=== PATIENT | female | born 1955 | race African-American/Black ===

== ENCOUNTER 2019-03-14 02:39 | Observation (INO) ==
[2019-03-14] MEDS ORDERED: ASPIRIN PO ONE (03:06)
[2019-03-14 03:36] LABS: BASO# 0.01 X1000 (0.0-0.2); BASO% 0.2 % (0.0-0.8); EOS# 0.08 X1000 (0.0-0.7); EOS% 1.3 % (0.0-10.0); HEMATOCRIT 35.2 % (37.0-47.0); HEMOGLOBIN 11.4 g/dL (12.0-16.0); LYMPH# 2.51 X1000 (1.2-3.4); LYMPH% 39.9 % (20.5-51.1); MCH 28.5 PG (27-31); MCHC 32.4 g/dL (33-37); MONO# 0.74 X1000 (0.11-0.59); MONO% 11.8 % (1.7-9.3); MPV 13.5 FL (7.4-10.4); NEUT# 2.95 X1000 (1.4-6.5); NEUT% 46.8 % (42.2-75.2); PLT 121 X1000 (130-400); RDW 13.7 % (11.5-14.5); WBC 6.29 X1000 (4.8-10.8)
--- NOTE | 2019-03-14 03:39 | PROVIDER DOCUMENTATION ---
HPI-Chest Pain - General Chief Complaint: Chest Pain Stated Complaint: CHEST PAIN/BACK PA IN Time Seen by Provider: 03/14/19 03:15 Source: patient Allergies/Adverse Reactions: Patient Allergies Allergy/AdvReac Type Severity Reaction Status Date / Time Sulfa (Sulfonamide Allergy ITCHING Verified 01/15/19 12:49 Antibiotics) Home Medications: Home Medication List Medication Instructions Recorded Confirmed Last Taken Type ATORVAstatin [Lipitor] 1 tab PO QHS 01/15/19 03/14/19 01/14/19 History Cartilage/Collagen/Bor/Hyalur 1 tab PO DAILY 01/15/19 03/14/19 01/14/19 History [Joint Health Tablet] Dicyclomine [Bentyl] 1 cap PO BID 01/15/19 03/14/19 01/14/19 History Krill Oil 1 cap PO DAILY 01/15/19 03/14/19 01/14/19 History Lisinopril/Hydrochlorothiazide 1 tab PO DAILY 01/15/19 03/14/19 01/14/19 History [Lisinopril-Hctz 10-12.5 mg Tab] Pantoprazole Sodium [Protonix] 40 mg PO DAILY #10 tablet. 01/15/19 03/14/19 Unknown Rx Cetirizine [Zyrtec] 10 mg PO DAILY 03/14/19 03/14/19 Unknown History Ginseng 1 dose PO DAILY 03/14/19 03/14/19 Unknown History Multivit-Min36/Iron/Folic Acid 1 tab PO DAILY 03/14/19 03/14/19 Unknown History [Geritol Complete Tablet] - History of Present Illness-CP Nature of Presenting Problem: sharp sternal CP, that radiates only to back, began ~1100 am yest. No SOB, no abd pain, no N/V, no diaphoresis. Has tried various meds for reflux without relief. Says nothing she does makes better nor worse. No hx of cardiac issues Location: reports: substernal Review of Systems - Adult - REVIEW OF SYSTEMS - ADULT Constitutional: reports: no symptoms reported Eyes: reports: no symptoms reported Ears, Nose, Mouth & Throat: reports: no symptoms reported Cardiovascular: reports: see HPI Respiratory: reports: no symptoms reported Gastrointestinal: reports: no symptoms reported Genitourinary: reports: no symptoms reported Musculoskeletal: reports: no symptoms reported Integumentary: reports: no symptoms reported Neurological: reports: no symptoms reported Psychiatric: reports: no symptoms reported Endocrine: reports: no symptoms reported Hematologic/Lymphatic: reports: no symptoms reported Allergic/Immunologic: reports: no symptoms reported Past History - Adult - PAST MEDICAL HISTORY-ADULT Review of Records: reports: Medications Reviewed Cardiovascular: reports: HTN, hyperlipidemia Respiratory: reports: denies history Gastrointestinal: reports: GERD Genitourinary: reports: denies history Musculoskeletal: reports: denies history Neurological: reports: denies history Psychiatric: reports: denies history Endocrine/Immune: reports: denies history Additional History: 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, grossly normal, no motor/sensory deficits - PSYCHIATRIC Psych/Mental Status: normal mood/affect, normal thought content, normal thought process, oriented x 3 - HEART Score HEART Score: History: Moderately Suspicious HEART Score: ECG: Non-Specific Repolarization Disturbance/LBBB/PM HEART Score: Age: 45-65 Years HEART Score: Risk Factors for Atherosclerotic Disease: 1 or 2 Risk Factors HEART Score: Troponin: < or = Normal Limit Total HEART Score:: 4 Progress - PLAN OF CARE/RESULTS Progress/Plan/Lab Results: Vital Signs - 8 hr 03/14/19 02:40 03/14/19 04:32 03/14/19 04:34 Temperature 98.2 F Pulse Rate 69 67 Respiratory Rate 20 18 Blood Pressure 116/73 107/68 O2 Sat by Pulse Oximetry 95 03/14/19 05:30 03/14/19 05:32 03/14/19 05:45 Temperature Pulse Rate 83 81 77 Respiratory Rate 18 16 14 Blood Pressure 137/65 O2 Sat by Pulse Oximetry 99 98 97 03/14/19 06:00 03/14/19 06:02 03/14/19 06:30 Temperature Pulse Rate 74 75 73 Respiratory Rate 13 14 14 Blood Pressure 114/61 O2 Sat by Pulse Oximetry 98 98 97 03/14/19 06:32 03/14/19 06:45 03/14/19 07:00 Temperature Pulse Rate 69 73 71 Respiratory Rate 12 14 15 Blood Pressure 102/65 O2 Sat by Pulse Oximetry 97 97 98 03/14/19 07:02 03/14/19 07:15 03/14/19 07:30 Temperature Pulse Rate 66 68 69 Respiratory Rate 13 13 14 Blood Pressure 112/62 O2 Sat by Pulse Oximetry 98 98 98 03/14/19 07:32 03/14/19 07:36 03/14/19 07:45 Temperature Pulse Rate 66 64 68 Respiratory Rate 14 12 15 Blood Pressure 118/64 108/67 O2 Sat by Pulse Oximetry 99 99 99 03/14/19 08:01 Temperature 98.2 F Pulse Rate 75 Respiratory Rate 18 Blood Pressure 115/67 O2 Sat by Pulse Oximetry 98 Laboratory Results - last 24 hr 03/14/19 03/14/19 03/14/19 03:00 03:00 03:00 WBC 6.29 RBC 4.00 L Hgb 11.4 L Hct 35.2 L MCV 88.0 MCH 28.5 MCHC 32.4 L RDW Std Deviation 13.7 Plt Count 121 L MPV 13.5 H Immature Gran % (Auto) 0.0 Neut % (Auto) 46.8 Lymph % (Auto) 39.9 [place] % (Auto) 11.8 H Eos % (Auto) 1.3 Baso % (Auto) 0.2 Immature Gran # (Auto) 0.00 Neut # (Auto) 2.95 Lymph # (Auto) 2.51 [place] # (Auto) 0.74 H Eos # (Auto) 0.08 Baso # (Auto) 0.01 PT INR PTT (Actin FS) D-Dimer, Quantitative Sodium 141 Potassium 3.9 Chloride 103 Carbon Dioxide 24 L Anion Gap 14 BUN 18 Creatinine 1.1 H Estimated GFR/1.73 m2 60 BUN/Creatinine Ratio 16 Glucose 122 H Calculated Osmolality 284 Calcium 9.9 Total Bilirubin 0.19 L AST 18 ALT 10 Alkaline Phosphatase 88 Creatine Kinase 206 H Creatine Kinase Index 0.8 CK-MB (CK-2) 1.61 Troponin T [id number]-Szivqiqyxfj Pept 20 Total Protein 7.7 Albumin 4.5 Globulin 3.2 Albumin/Globulin Ratio 1.4 03/14/19 03/14/19 03/14/19 03:00 03:00 03:00 WBC RBC Hgb Hct MCV MCH MCHC RDW Std Deviation Plt Count MPV Immature Gran % (Auto) Neut % (Auto) Lymph % (Auto) [place] % (Auto) Eos % (Auto) Baso % (Auto) Immature Gran # (Auto) Neut # (Auto) Lymph # (Auto) [place] # (Auto) Eos # (Auto) Baso # (Auto) PT 12.6 INR 0.93 PTT (Actin FS) 30.5 D-Dimer, Quantitative 0.99 H Sodium Potassium Chloride Carbon Dioxide Anion Gap BUN Creatinine Estimated GFR/1.73 m2 BUN/Creatinine Ratio Glucose Calculated Osmolality Calcium Total Bilirubin AST ALT Alkaline Phosphatase Creatine Kinase Creatine Kinase Index CK-MB (CK-2) Troponin T < 0.010 Uae-[id number]-Ukdpzxzuktn Pept Total Protein Albumin Globulin Albumin/Globulin Ratio Orders Category Date Time Status Cardiac Monitoring DIRECTED Care 03/14/19 03:06 Active Nursing- Obtain EKG once Care 03/14/19 08:22 Active Oxygen Therapy- ED Nursing DIRECTED Care 03/14/19 03:06 Active Saline Loc NOW Care 03/14/19 03:06 Active CHEST-2 VIEWS [RAD] Stat Exams 03/14/19 03:[address] ANGIOGRM PULMONARY ARTERIES [CT] Stat Exams 03/14/19 04:33 Completed CBC WITH ELECTRONIC DIFF [HEME] Stat Lab 03/14/19 03:00 Completed CK PROFILE [SP CHEM] Stat Lab 03/14/19 03:00 Completed COMPREHENSIVE METABOLIC PANEL [CHEM] Stat Lab 03/14/19 03:00 Completed D-DIMER [COAG] Stat Lab 03/14/19 03:00 Completed PRO B-NATRIURETIC PEPTIDE Stat Lab 03/14/19 03:00 Completed PROTIME WITH INR [COAG] Stat Lab 03/14/19 03:00 Completed PTT [COAG] Stat Lab 03/14/19 03:00 Completed TROPONIN T Stat Lab 03/14/19 03:00 Completed TROPONIN T Stat Lab 03/14/19 08:35 Ordered Aspirin Med 03/14/19 03:06 Discontinued 325 mg PO NOW ONE Nitroglycerin Med 03/14/19 08:23 Discontinued 0.5 inch TOP NOW ONE CP/SOB/Palp >45 yrs of Age Stat Oth 03/14/19 03:06 Ordered EKG [EKG] Stat Ther 03/14/19 03:06 Draft EKG [EKG] Stat Ther 03/14/19 08:22 Ordered Result Diagrams: 03/14/19 03:00 03/14/19 03:00 - REASSESSMENT Reassessment #1 Time Reassessed: 08:23 Status: improving (seen and examined by me. Has left sided CP radiating to back intermittent since yesterday. Never had this before. Case discussed with Dr. Turpin. CTA negative for PE. Left retroperitoneal mass present for many years, last checked 2 years ago.) - EKG 1 Time of EKG reading by physician:: 02:51 EKG Read and Signed by:: Torin Turpin EKG Interpretation (*Must complete 3 of following elements*): Normal Rate: 66 Rhythm: nsr QRS: normal ST Wave: normal 2 Time of EKG reading by physician:: 08:37 EKG Read and Signed by:: Thanh Shah EKG Interpretation (*Must complete 3 of following elements*): Normal Rate: 61 Rhythm: NSR [place]: normal QRS: normal VT Interval: normal ST Wave: normal - CT/MRI 1 CT Study: Angiogram Impression: Abnormal, See EMR Report ( Signed EXAM: CT ANGIOGRM PULMONARY ARTERIES 03/14/2019 HISTORY: R/O PE, dissection TECHNIQUE: This exam was performed using automated exposure control, adjustment of mA or kV according to patient size, and/or use of iterative reconstruction technique. COMMENT: There are no previous studies. 3-D MIPS were performed. There are no filling defects in the pulmonary arteries. There is no evidence of aneurysm or dissection in the thoracic aorta. There is a small hiatal hernia. There is some hyperdense material in the stomach which may be due to ingested medication. There is a lack of enhancement as well as marked atrophy in the left kidney. There are several cysts in the left kidney. There is a mass encasing the left renal artery which is threadlike. This mass also abuts the aorta and measures at least 3.1 x 1.9 cm in axial dimension and 3.1 cm in superior-inferior dimensio n. It appears to be separate from the adrenal gland. This may be a steve mass. Further evaluation of the abdomen may be desirable. There are platelike opacities in both lower lobes posteriorly. There are calcifications in nodes in the aorticopulmonary window and left hilum. There are spondylotic changes in the thoracic spine. There is no evidence of acute bony abnormality. IMPRESSION: Minimal bibasilar atelectasis. Retroperitoneal mass surrounding the left renal artery. 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 Electronically signed by Jagdish Goddard 03/14/2019 7:03 AM 03/14/19 0703 Interpreting Physician: Jagdish Goddard MD Dictated Date/Time: 03/14/19 0657 cc: Torin Turpin MD; None,PCP) - CONSULTS/PCP/HOSPITALIST Notification #1 *Consult/PCP/Hospitalist*: Hospitalist ASHOK paged at 0820 Time Discussed: 08:38 ([place]) Consult Disposition: Will see in ED, Admit - CHANGE OF SHIFT REPORT (ED Provider) 1 Report Given and Care Transferred to:: Pablo Time of Transfer: 06:39 Items Pending: CT/MRI Results Departure - Departure Date of Disposition Decision: 03/14/19 Time of Disposition Decision: 08:24 DIAGNOSIS: Chest pain of uncertain etiology Disposition: ADMITTED INPATIENT 09 Certified Medical Emergency: Emergent Condition: Stable Referrals and Follow-Ups: None,PCP [Primary Care Provider] - - Critical Care Note This patient required my direct & personal management of CC.: No Attestation - Physician/ ELIUD Attestation Patient care was provided by Advanced Practice Provider:: No The physician spent face to face time with patient:: Yes Advanced Practice Provider documentation review:: Supervising physician onsite and consulted in the evaluation and care of this patient. The physician did have a face to face encounter with the patient.
--- NOTE | 2019-03-14 03:48 | EKG Report ---
Test Performed on : 03/14/2019 02:48:46 AM Test Reason : cp Blood Pressure : / mmHG Vent. Rate : 066 BPM Atrial Rate : 066 BPM P-R Int : 156 ms QRS Dur : 082 ms QT Int : 438 ms P-R-T Axes : 021 011 042 degrees QTc Int : 459 ms Normal sinus rhythm. Normal ECG When compared with ECG of 15-JAN-2019 10:31, (Unconfirmed) No significant change was found Unconfirmed Result
[2019-03-14 04:09] LABS: INR 0.93; PROTIME 12.6 Seconds (11.0-16.0); PTT 30.5 Seconds (22.3-41.8)
[2019-03-14 04:37] LABS: ALB/GLOB RATIO 1.4; ALBUMIN 4.5 g/dL (3.5-5.0); CALCIUM 9.9 mg/dL (8.8-10.2); CREATININE 1.1 mg/dL (0.5-0.9); POTASSIUM 3.9 mmol/L (3.5-5.1); TOTAL BILIRUBIN 0.19 mg/dL (0.20-1.00); TOTAL PROTEIN 7.7 g/dL (6.3-8.3)
[2019-03-14 05:20] LABS: CK INDEX 0.8 (0.0-2.5); CK-MB 1.61 ng/mL (0.0-5.0)
--- NOTE | 2019-03-14 07:06 | Diag Imaging Result Doc PS360 ---
EXAM: CT ANGIOGRM PULMONARY ARTERIES 03/14/2019 HISTORY: R/O PE, dissection TECHNIQUE: This exam was performed using automated exposure control, adjustment of mA or kV according to patient size, and/or use of iterative reconstruction technique. COMMENT: There are no previous studies. 3-D MIPS were performed. There are no filling defects in the pulmonary arteries. There is no evidence of aneurysm or dissection in the thoracic aorta. There is a small hiatal hernia. There is some hyperdense material in the stomach which may be due to ingested medication. There is a lack of enhancement as well as marked atrophy in the left kidney. There are several cysts in the left kidney. There is a mass encasing the left renal artery which is threadlike. This mass also abuts the aorta and measures at least 3.1 x 1.9 cm in axial dimension and 3.1 cm in superior-inferior dimension. It appears to be separate from the adrenal gland. This may be a steve mass. Further evaluation of the abdomen may be desirable. There are platelike opacities in both lower lobes posteriorly. There are calcifications in nodes in the aorticopulmonary window and left hilum. There are spondylotic changes in the thoracic spine. There is no evidence of acute bony abnormality. IMPRESSION: Minimal bibasilar atelectasis. Retroperitoneal mass surrounding the left renal artery. 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 Electronically signed by Jagdish Goddard 03/14/2019 7:03 AM
--- NOTE | 2019-03-14 07:27 | Diag Imaging Result Doc PS360 ---
EXAM: CHEST-2 VIEWS 03/14/2019 HISTORY: cp TECHNIQUE: PA and lateral chest COMMENT: There is curvature of the lower thoracic spine with convexity to the right. There are platelike opacities in the left base. This was not the case on 01/15/2019. Otherwise lungs are clear. IMPRESSION: Minimal left lower lobe atelectasis. Electronically signed by Jagdish Goddard 03/14/2019 7:24 AM
[2019-03-14] MEDS ORDERED: NITROGLYCERIN TOP ONE (08:23)
[2019-03-14] MEDS ORDERED: PEPCID IV ONE (08:40)
[2019-03-14] MEDS ORDERED: SODIUM CHLORIDE 0.9% INJ ONE (08:40)
[2019-03-14] MEDS ORDERED: G.I. COCKTAIL PO ONE (08:40)
--- NOTE | 2019-03-14 09:00 | EKG Report ---
Test Performed on : 03/14/2019 08:30:32 AM Test Reason : this is a repeat Blood Pressure : / mmHG Vent. Rate : 061 BPM Atrial Rate : 061 BPM P-R Int : 194 ms QRS Dur : 084 ms QT Int : 458 ms P-R-T Axes : 050 007 018 degrees QTc Int : 461 ms Normal sinus rhythm. Normal ECG When compared with ECG of 14-MAR-2019 02:48, (Unconfirmed) No significant change was found Unconfirmed Result
[2019-03-14] MEDS ORDERED: TYLENOL PO PRN (12:25)
[2019-03-14] MEDS ORDERED: PRINZIDE 10/12.5MG PO SCH (12:25)
[2019-03-14] MEDS ORDERED: ZOFRAN IV PRN (12:25)
[2019-03-14] MEDS: PROTONIX PO SCH (13:36)
[2019-03-14] MEDS: NS 1,000 ML IV SCH (13:36)
[2019-03-14] MEDS: ASPIRIN PO SCH (13:36)
[2019-03-14] MEDS: PRINIVIL PO SCH (13:36)
[2019-03-14] MEDS: HYDROCHLOROTHIAZIDE PO SCH (13:36)
--- NOTE | 2019-03-14 13:41 | HISTORY AND PHYSICAL ---
PRIMARY CARE PROVIDER: Nasir Rangel in [place]. CHIEF COMPLAINT: Chest and back pain. HISTORY OF PRESENT ILLNESS: Ms. 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 she started having pain in the middle of her chest. She took her regular medication for her stomach with no relief, then she took another acid reflux pill with no relief and 2 Tums. Around 1500, she took 2 Advil and her pain eased. Around 2300, she took some Pepto-Bismol. Around 2 a.m. her pain increased, so she decided to come to the ED. Her pain hurts worse with movement. It is sharp in nature. It radiates to the middle of her back. However, she is in no pain if she lies completely still. She has no associated symptoms with it. There is no shortness of breath. No diaphoresis. No dizziness. No nausea, no vomiting. No palpitations. No arm radiation. No neck radiation. Workup in the ED has 2 EKGs that showed normal sinus rhythm. A chest x-ray that showed a left lower lobe atelectasis. Two sets of negative cardiac enzymes. She did have an elevated D-dimer of 0.99, which prompted a CTA of the chest that showed minimal bibasilar atelectasis and known retroperitoneal mass surrounding the left renal artery and marked left renal atrophy and atresia of the left renal artery. She has been hemodynamically stable while in the ED. We will set her up for a complete cardiac workup and transfer her to [place] for lack of beds at [facility]. She will be n.p.o. after midnight and stress test in the a.m. PAST MEDICAL HISTORY: Hypertension, hyperlipidemia, GERD, arthritis. FAMILY HISTORY: Reviewed and noncontributory. SOCIAL HISTORY: She is . She lives in between [place] and [place]. Last time she traveled was over 2 weeks ago. There is no tobacco, alcohol or illicit drug use. ALLERGIES: Sulfa that causes itching. HOME MEDICATIONS: 1. Lipitor 10 mg p.o. at bedtime. 2. Bentyl 10 mg p.o. b.i.d. 3. Geritol Complete 1 tab p.o. daily. 4. Ginseng 100 mg p.o. daily. 5. Joint Health 1 tablet p.o. daily. 6. Krill oil 500 mg p.o. daily. 7. Lisinopril/hydrochlorothiazide 10/12.5 mg tablet 1 tablet p.o. daily. 8. Zyrtec 10 mg p.o. daily. 9. Protonix 40 mg p.o. daily. PHYSICAL EXAMINATION: VITAL SIGNS: Temperature 98.2 degrees, heart rate 65, respirations 13 blood pressure 118/72. GENERAL: Ms. Powell is a pleasant, 64-year-old female who is lying on the stretcher in no acute distress. HEENT: Atraumatic, normocephalic. PERRL. NECK: Supple. Trachea midline. CARDIOVASCULAR: S1, S2 appreciated. No murmurs, gallops, rubs noted. RESPIRATORY: Lung sounds clear bilaterally. GASTROINTESTINAL: Soft, nontender, nondistended. Positive bowel sounds 4 quadrants lower. LOWER EXTREMITIES: Negative for edema. NEUROLOGIC: No focal deficits noted. DIAGNOSTIC DATA: CTA, minimal bibasilar atelectasis. Retroperitoneal mass surrounding the left renal artery. 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 2 EKGs that showed normal sinus rhythm. LABORATORY DATA: White count 6, hemoglobin and hematocrit 11 and 35, platelet count is 121,000. D-dimer 0.99. Sodium 141, potassium 3.9, BUN 18, creatinine 1.1, blood glucose 122. CK 206, troponin x2 less than 0.010. ASSESSMENT AND PLAN: 1. Chest pain rule out. She has had 2 sets of negative cardiac enzymes. We will continue to trend given echocardiogram. N.p.o. after midnight, set her up for a stress test in the a.m. Continue with lose-dose aspirin. Recheck an EKG in the a.m. 2. Hypertension, controlled. Continue home medications. 3. Hyperlipidemia. We will check lipid profile in the a.m. Continue her home Lipitor. 4. Elevated D-dimer. CTA of the chest was negative. We will do venous Dopplers as she does frequently travel between [place] and [place], as she resides in both places. 5. Known retroperitoneal mass surrounding the left renal artery that has been there for 40+ years. 6. Chronic kidney disease secondary to the mass, stable. 7. Arthritis. 8. Gastroesophageal reflux disease. Continue PPI. We will do a GI cocktail and a dose of IV Pepcid now. Further recommendation to follow physician evaluation, laboratory and diagnostic data. Dictated by ASHOK Tolentino for Mello Crane MD cc: MD Dr. Nasir Daugherty
--- NOTE | 2019-03-14 14:06 | HISTORY AND PHYSICAL ---
SUBJECTIVE: Patient has no major complaints. OBJECTIVE: Blood pressure is 118/72, heart rate 65. EKG really did not show anything too concerning, possibly a Q, but nothing that was significant, ST changes. In any case, the patient is evaluated. Her workup was negative. She will be admitted for chest pain, rule out. Her heart score I would say point for history, point for age. Her risk factors are just hypertension and dyslipidemia. She has family history, father, so at least a 3. So far, the rest of her workup is negative so we will continue to follow. ASSESSMENT/PLAN: We will get a CT of her retroperitoneal mass, see if there is anything going on there. She is going to be transferred to [place] because of overflow bed issues. This is a [id number] encounter note with Cassandra Cardona. cc: Mello Crane MD
[2019-03-14 14:32] LABS: AGAP 13; BUN 16 mg/dL (8-22); CALCIUM 9.7 mg/dL (8.8-10.2); CHLORIDE 103 mmol/L (98-107); COSMO 282; ESTIMATED GFR > 60; GLUCOSE 90 mg/dL (70-104); POTASSIUM 4.5 mmol/L (3.5-5.1); SODIUM 141 mmol/L (136-145); TCO2 25 mmol/L (25-35)
[2019-03-14 14:36] LABS: CHOLESTEROL 169 mg/dL (0-200); HDL 54 mg/dL (45-65); LDL 97 mg/dL; TRIGLYCERIDES 92 mg/dL (35-135); VLDL 18 mg/dL
[2019-03-14 14:56] LABS: CK INDEX 0.6 (0.0-2.5); CK-MB 1.18 ng/mL (0.0-5.0)
--- NOTE | 2019-03-14 16:49 | Diag Imaging Result Doc PS360 ---
EXAM: CT ABD/PELVIS W/PO AND IV CON HISTORY: retroperitoneal mass TECHNIQUE: This exam was performed using automated exposure control, adjustment of mA or kV according to patient size, and/or use of iterative reconstruction technique. COMPARISON: None. FINDINGS: Lung bases: There is mild increased attenuation with bronchiectasis at the bilateral bases. Hepatobiliary: Normal liver attenuation. No intrahepatic or extrahepatic biliary ductal dilatation is identified.. No suspicious masses are appreciated. There is hyperdensity within the gallbladder suggesting milk of calcium. There is also probable 2 cm gallstone. Recommend correlation with ultrasound. Pancreas/Adrenal glands/Spleen: Normal size and enhancement. No cysts or solid masses are appreciated. Kidneys: There is a diminutive left kidney with cysts and poor enhancement. There is compensatory hypertrophy of the right kidney. Small cortical cyst upper pole right kidney. No hydronephrosis or nephrolithiasis. Retroperitoneum: There is a 3.8 x 18 mm retroperitoneal mass at the level of the left renal vessels, image 39. There is 2.8 cm soft tissue prominence right para-aortic region contiguous with the right diaphragmatic crura image 35. Normal caliber aorta. There is moderately severe atherosclerotic disease. Bowel/Mesentery: Normal caliber small and large bowel loops. No evidence for obstruction. There is moderate colonic stool burden. . No mesenteric lymphadenopathy is appreciated. Appendix: Normal. No evidence for acute appendicitis. Pelvis: Reproductive organs show no acute abnormality. Probable small uterine fibroid. Urinary bladder is completely opacified with contrast, possibly from prior procedure, and appears unremarkable. There is a marked scoliosis. No acute bony abnormality is demonstrated. IMPRESSION: 1.Retroperitoneal para-aortic soft tissue attenuation at the level of the renal vessels left greater than right. This may be seen with pulmonary, retroperitoneal fibrosis or primary mesenchymal neoplasm. Correlate clinically. 2.Constipation. 3.Cholelithiasis. Correlate with gallbladder ultrasound. Electronically signed by Nanda Blood 03/14/2019 4:47 PM
[2019-03-14] MEDS ORDERED: TORADOL IV PRN (18:25)
[2019-03-14] MEDS ORDERED: LIPITOR PO SCH (21:00)
[2019-03-15] MEDS: NS 1,000 ML IV SCH (04:01)
--- NOTE | 2019-03-15 04:22 | EKG Report ---
Test Performed on : 03/15/2019 04:14:12 AM Test Reason : CP Blood Pressure : / mmHG Vent. Rate : 064 BPM Atrial Rate : 064 BPM P-R Int : 196 ms QRS Dur : 082 ms QT Int : 468 ms P-R-T Axes : 066 020 033 degrees QTc Int : 482 ms Sinus rhythm. with occasional ventricular-paced complexes Abnormal ECG When compared with ECG of 14-MAR-2019 08:30, (Unconfirmed) Electronic ventricular pacemaker has replaced Sinus rhythm. Confirmed by Fredy Gillis MD ([id number]) on 03/17/2019 7:21:10 AM
[2019-03-15] MEDS: PROTONIX PO SCH (06:24)
[2019-03-15 08:18] VITALS: BP 109/58
--- NOTE | 2019-03-15 11:18 | Vascular Study Report ---
EXAM: Venous U/S Bilateral Legs - 03/14/2019 HISTORY: elevated ddimer TECHNIQUE: Bilateral lower extremity Doppler venous ultrasound COMPARISON: None. FINDINGS: The deep veins of the bilateral extremities demonstrate flow, with compressibility and augmentation. There are no filling defects identified. IMPRESSION: No evidence of deep venous thrombosis in either lower extremity. Electronically signed by Michael Manuel 03/15/2019 11:16 AM
[2019-03-15] MEDS ORDERED: LEXISCAN ONE (12:27)
[2019-03-15] MEDS: HYDROCHLOROTHIAZIDE PO SCH (13:55)
[2019-03-15] MEDS: PRINIVIL PO SCH (13:55)
[2019-03-15] MEDS: ASPIRIN PO SCH (13:55)
--- NOTE | 2019-03-15 14:17 | Diag Imaging Result Document ---
PROCEDURE NAME: MYOCARDIAL PERF SCAN, STR/REST - 03/15/2019 PROCEDURE PERFORMED: Lexiscan Cardiolite stress test. DESCRIPTION OF PROCEDURE: Lexiscan stress test was negative for ischemia. Following Lexiscan infusion, Cardiolite was injected. There were 15.1 mCi of Cardiolite injected for the rest phase and 37 mCi Cardiolite injected for the stress phase. Images revealed significant chest wall attenuation. Normal left ventricular cavity size. Normal left ventricular ejection fraction estimated at 80%. There is no evidence of ischemia. There is a low-grade, fixed defect in the left ventricular apex with normal wall motion, suggestive of attenuation defect. Low probability of scar. There is better tracer uptake on the stress compared to rest. CONCLUSIONS: 1. There is no evidence of ischemia. 2. Myocardial perfusion images revealed a low-grade, fixed defect in the left ventricular apex with significant chest wall attenuation. Normal wall motion. This is likely to represent attenuation defect. Low probability of scar. 3. Left ventricular ejection fraction by gated SPECT was 80%. cc: Nelson Petersen MD
--- NOTE | 2019-03-15 16:31 | ECHO REPORT ---
ORDER DATE: 03/14/2019 ECHOCARDIOGRAPHIC MEASUREMENTS: 1. Interventricular septum 1.2. 2. Left ventricular posterior wall 1.2. 3. Diastolic diameter 5.0 left atrium 2.8. 4. Aorta 2.7 cm. SUMMARY OF THE 2-DIMENSIONAL IMAGIN. Mitral valve was normal. 2. Tricuspid valve was normal. 3. Aortic valve leaflets were trileaflet. 4. Pulmonic valve was normal. There is mild pulmonary regurgitation. 5. Normal left ventricular cavity size. Estimated ejection fraction of 60%. There is mild tricuspid regurgitation. Peak velocity across the tricuspid valve was 2.7 m/sec. 6. Pulmonary artery systolic pressure of 38 mmHg There is mild mitral regurgitation. 7. Peak velocity across the aortic valve less than 2 m/sec by Doppler studies. There is no aortic stenosis or regurgitation. 8. There is no pericardial effusion or obvious intracardiac mass or thrombus seen. 9. There is no aortic stenosis or regurgitation. cc: Nelson Petersen MD
--- NOTE | 2019-03-20 22:11 | DISCHARGE SUMMARY ---
ADMISSION DATE: 03/14/2019 DISCHARGE DATE: 03/15/2019 DISCHARGE DIAGNOSES: 1. Chest pain. 2. Hypertension. 3. Hyperlipidemia. 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 5. Chronic kidney disease. 6. Arthritis. 7. Hypertension. CONSULTATIONS: None. PROCEDURES: None. BRIEF HOSPITAL COURSE: The patient is a 64-year-old female who presented to the hospital with chest pain. She was admitted to the hospital, enzymes were negative. She underwent a stress test which also was negative, and therefore she will be discharged home. Thankfully she had an uneventful hospital course. Her chest pain is resolved. DISPOSITION: The patient will be discharged home. She will continue her Lipitor, Bentyl, Ginseng, krill oil, lisinopril, hydrochlorothiazide, Zyrtec, and Protonix. She will follow up outpatient with her primary care. TIME SPENT: Greater than 30 minutes was spent in total care. cc: Ari Loving MD
== END 2019-03-15 15:35 | disposition home or self-care (01) ==
LOC: ED 02:39 → INTOOBSV 10:34 → P.MEDSURG 10:34
PROVIDERS: ATTEND Family Medicine